=== PATIENT | female | born 1995 | race Caucasian/White ===

== ENCOUNTER 2024-07-28 18:24 | Emergency (ER) | payer OTHER, SELFPAY ==
[2024-07-28 18:29] VITALS: BP 116/94
[2024-07-28 18:50] LABS: Urine Albumin 4+ (Neg - Trace); Urine Bilirubin 3+ (Negative); Urine Character Cloudy (Clear); Urine Color Yellow; Urine Glucose Negative (Negative); Urine Ketone Negative (Negative); Urine Leukocyte 3+ (Negative); Urine Nitrite Positive (Negative); Urine Occult Blood 4+ (Negative); Urine Urobilinogen 4+ (Neg - 1+)
[2024-07-28 18:56] LABS: Urine Red Blood Cell >100 /HPF (0-2); Urine Squamous Cell 26-30 /LPF (Few)
[2024-07-28 18:57] LABS: Urine White Cell 90-100 /HPF (0-5)
[2024-07-28 18:58] LABS: Urine Bacteria Moderate (Negative)
--- NOTE | 2024-07-28 20:01 | ED.GENMED ---
History of Present Illness
General
Chief Complaint: Urinary Symptoms
Source: patient
Exam Limitations: none
Time Seen by Provider: 07/28/24 19:54
History of Present Illness
History of Present Illness:
29yoF with no significant past medical history presenting for evaluation of UTI symptoms x 1 day. She reports dysuria, urinary frequency, urgency, and hematuria since yesterday. She also is having some suprapubic discomfort. She is having nausea
but denies any vomiting. No fevers. No vaginal bleeding or discharge.
Past History
Past History
ED Past Medical History: Seizures (1 prior episode) and Other (Right temporal lobe resection for meningioma, depression, anxiety, PTSD)
Social History
Tobacco: Smoker
Alcohol: Occasional
Drug: None and Marijuana
Personal: Single
Living: with family
Employment: Employed
Family History
Family History: Other (Father with kidney stones and coronary disease)
Phy Exam
General Physical Exam
General Presentation: well appearing and no apparent distress
General Skin: warm and dry
General Habitus: normal
General Mental: alert
ENT Exam
ENT Exam: normocephalic
Pulmonary Exam
Pulmonary Exam: no respiratory distress
Gastrointestinal Exam
Gastrointestinal Exam: soft, non distended, no cva tenderness and other (Mild suprapubic tenderness. No CVA tenderness bilaterally. )
Neurological Exam
Neurological Exam: alert
Harjeet Coma Scale
Eye Opening: Spontaneous
Verbal Response: Oriented
Motor Response: Obeys Commands
GCS Total Score: 15
Skin Exam
Skin Exam: normal color and warm/dry
Psychiatric Exam
Psychiatric Exam: normal mood/affect
Course
Orders/Labs/Results
Orders:
Orders
07/28/24 18:42
Urinalysis Reflex To Culture Urgent
Date Specimen was Collected: 07/28/24
Time Specimen was Collected: 18:33
Urine Microscopic Reflex Cult Urgent
Urine Culture Urgent
ANTHONY Source: U
Specimen Description:
Date Specimen was Collected: 07/28/24
Time Specimen was Collected: 18:33
07/28/24 20:02
Cefdinir [Omnicef] 300 mg PO NOW STA
Abnormal Lab Results
07/28/24
18:42
Ur Occult Blood Reflex 4+ A
(Negative)
Urine Nitrite (Reflex) Positive A
(Negative)
Urine Bilirubin 3+ A
(Negative)
Urine Urobilinogen 4+ A
(Neg - 1+)
Leukocyte Esterase Rfl 3+ A
(Negative)
Urine RBC >100 A /HPF
(0-2)
Urine WBC (Reflex) 90-100 A /HPF
(0-5)
Urine Bacteria (Reflex) Moderate A
(Negative)
Urine Albumin (Reflex) 4+ A
(Neg - Trace)
Vital Signs
Initial and Last Documented VS:
Initial Vital Signs
Temp Pulse Resp BP Pulse Ox
98.4 F 82 16 116/94 100
07/28/24 18:29 07/28/24 18:29 07/28/24 18:29 07/28/24 18:29 07/28/24 18:29
Last Documented Vital Signs
Temp Pulse Resp BP Pulse Ox
98.4 F 79 16 124/83 99
07/28/24 18:29 07/28/24 20:17 07/28/24 20:17 07/28/24 20:17 07/28/24 20:17
MDM/Problems Addressed
Differential Diagnosis Includes:
29yoF here with UTI symptoms since yesterday. No fevers or vomiting. VSS. She is well appearing in no distress. No CVA tenderness on exam. UA obtained in triage which shows 90-100 WBC, moderate bacteria, and >100 RBCs. Clinical presentation
consistent with a UTI. Doubt kidney stone and there are no clinical signs of pyelonephritis. She was started on a course of cefdinir. ED return precautions reviewed including flank pain, fevers, vomiting. Patient in agreement with plan and was
discharged in stable condition.
*Critical Care Note
Total Time (30-74mins, 75-104mins- exclusive of procedures): Not Applicable
ED Attending Note
-
Portions of this chart may have been created with voice recognition software.� Occasional wrong word or��sound alike� substitutions may have occurred due to the inherent limitations of voice recognition software.
Discharge Plan
Departure
Patient Disposition: Home (Routine Discharge)
Date of Disposition: 07/28/24
Time of Disposition: 20:02
Patient with high blood pressure during this ER visit?: No
Discharge Problem:
Urinary tract infection
Instructions: Urinary Tract Infection, Adult (DC)
Prescriptions:
New
cefdinir 300 mg capsule
300 mg PO BID Qty: 13 0RF
No Action
levetiracetam 500 MG tablet
500 mg PO BID Qty: 30 0RF
ondansetron HCl 4 MG tablet
4 mg PO Q8HPRN PRN (Reason: vomiting) Qty: 10 0RF
Referrals:
[facility] [Provider Group]
Activity Restrictions/Additional Instructions:
Drink plenty of fluids and hydrate. Take antibiotics as prescribed. You may take AZO as needed for 3 days.
Please follow-up with a family doctor. Return to the ER with any new or worsening symptoms including fevers, vomiting, or flank pain.
Interventions
Interventions:
*Risk Screen - Suicide Last Done: 07/28/24 18:29
*General Assessment Last Done: 07/28/24 18:29
*Neglect/Abuse Screening Last Done: 07/28/24 18:29
*Nursing Disposition Last Done: 07/28/24 20:23
ED-Female Genitourinary Assessment Last Done: 07/28/24 20:22
Discharge Date and Time
Discharge Date/Time: 07/28/24 20:23
Print Language: [id number]
[2024-07-28 20:17] VITALS: BP 124/83
[2024-07-28] MEDS: OMNICEF 300 MG PO (20:17)
== END 2024-07-28 20:23 | disposition home or self-care (01) ==
LOC: EMR 18:24
PROVIDERS: Emergency Medicine; EMERGENCY PHYSICIAN Emergency Medicine
DX: N39.0 Urinary tract infection, site not specified (principal); R10.9 Unspecified abdominal pain; R56.9 Unspecified convulsions; F41.9 Anxiety disorder, unspecified; F32.A Depression, unspecified; F43.10 Post-traumatic stress disorder, unspecified; F17.200 Nicotine dependence, unspecified, uncomplicated
CPT/HCPCS: 99283; 81003; 81015; 87086